=== PATIENT | male | born 1950 | race Caucasian/White ===

== ENCOUNTER 2016-09-02 03:40 | Emergency (ER) | payer MEDICARE ==
[~2016-09-02 03:40] MED LIST: ASPIRIN81 M1 PO; ATENOLOL25 MG PO; ATENOLOL50 MG PO; CARDIZEM CD120 M1 PO; CARTIA XT240 MG PO; CENTRUM SILVER PO; CORDARONE200 M1 PO; LASIX20 MG PO; LIPITOR40 MG PO; LISINOPRIL10 MG PO; LO-DOSE ASPIRIN81 M1 PO; LOPRESSOR PO; OMNICEF300 M1 PO; SEROQUEL PO; SEROQUEL300 MG PO; SEROQUEL400 MG PO; XARELTO20 MG PO; ZOLOFT PO; ZOLOFT100 MG PO
== END 2016-09-02 05:15 | disposition expired ==
LOC: CED 03:40
DX: I46.9 Cardiac arrest, cause unspecified (principal); I48.91 Unspecified atrial fibrillation; F32.9 Major depressive disorder, single episode, unspecified; Z79.82 Long term (current) use of aspirin; Z79.899 Other long term (current) drug therapy
CPT/HCPCS: 82947; 92950; 99285; J0171